=== PATIENT | male | born 1995 | race African-American/Black ===

== ENCOUNTER 2018-05-19 23:10 | Emergency (ER) | payer BC ==
[~2018-05-19] VITALS: Ht 185.4 cm; Wt 127.0 kg
[~2018-05-19 23:10] MED LIST: IBUPROFEN 600600 M1 PO; PEPCID20 MG PO; ZOFRAN ODT4 MG PO
[2018-05-19 23:49] LABS: URINE BILIRUBIN NEGATIVE (Negative); URINE BLOOD NEGATIVE (Negative); URINE CLARITY CLEAR; URINE COLOR YELLOW; URINE GLUCOSE-RANDOM* NEGATIVE (Negative); URINE KETONES NEGATIVE (Negative); URINE LEUKOCYTES-REFLEX NEGATIVE (Negative); URINE NITRITE-REFLEX NEGATIVE (Negative); URINE PROTEIN (DIPSTICK) NEGATIVE (Negative); URINE SPECIFIC GRAVITY >= 1.030 (1.005-1.035); URINE UROBILINOGEN 0.2 E.U./dl (0.2-1.0)
[2018-05-20 02:24] VITALS: BP 126/76
== END 2018-05-20 02:28 | disposition home or self-care (01) ==
LOC: ER 23:10
PROVIDERS: Emergency Medicine
DX: Z20.2 Contact with and (suspected) exposure to infections with a predominantly sexual mode of transmission (principal); L73.9 Follicular disorder, unspecified